=== PATIENT | female | born 1980 | race Caucasian/White ===

== ENCOUNTER 2021-04-06 14:14 | Emergency (ER) | payer OTHER ==
[~2021-04-06] VITALS: Ht 172.7 cm; Wt 102.1 kg
[2021-04-06 14:33] VITALS: BP 130/77
[2021-04-06] MEDS ORDERED: LIDO15SO PO (16:01)
--- NOTE | 2021-04-06 16:08 | NUR ---
40YO F BIBS WITH C/O THROAT DISCOMFORT X 1 DAY. PT WAS EATING FISH WHEN BONE GOT STUCK ON HER THROAT. DENIES SOB, OR DIFFICULTY BREATHING. DENIES ANY OTHER PROBLEMS. A&OX4, STEADY GAIT. PMH: DM MEDS: METFORMIN NKA
--- NOTE | 2021-04-06 16:47 | NUR ---
Patient discharged with v/s stable. Written and verbal after care instructions given and explained. Patient alert, oriented and verbalized understanding of instructions. Ambulatory with steady gait. All questions addressed prior to discharge. ID band removed. Patient advised to follow up with PMD. Rx of LIDOCAINE given. Patient educated on indication of medication including possible reaction and side effects. Opportunity to ask questions provided and answered.
== END 2021-04-06 16:47 | disposition home or self-care (01) ==
LOC: MED 14:14
DX: T18.108A Unspecified foreign body in esophagus causing other injury, initial encounter (principal); E11.9 Type 2 diabetes mellitus without complications; Z79.899 Other long term (current) drug therapy; X58.XXXA Exposure to other specified factors, initial encounter; Y93.89 Activity, other specified; Y92.89 Other specified places as the place of occurrence of the external cause; Y99.8 Other external cause status
CPT/HCPCS: 70360; 99283